=== PATIENT | male | born 1995 | race American Indian/Alaskan Native ===

== ENCOUNTER 2021-09-06 02:33 | Emergency (ER) | payer SELFPAY ==
--- NOTE | 2021-09-06 03:16 | Emergency Department Report ---
HPI - General Chief Complaint: Psych Time Seen by Provider: 09/06/21 02:46 - HPI HPI: 26-year-old -[place] male presents to the emergency department for a mental health evaluation with both suicidal and homicidal ideations. He has a history of bipolar disorder and schizophrenia and says that he has not been on medications for "a while" because "I stopped taking them." He had the plan to jump off a bridge in order to kill himself. When asked if there is a particular reason why he is feeling depressed and suicidal he says "yes" but does not want to discuss it any further. He also admits to some homicidal ideation towards the mother of his child. He admits to some nonspecific auditory hallucinations but denies visual hallucinations. He is an occasional tobacco smoker, but denies any illicit drug use. He denies any past medical history. ED Past Medical Hx - Past Medical History Hx Psychiatric Treatment: Yes (BIPOLOR, SCHIZOPHRENIA) - Surgical History Past Surgical History?: No ED Review of Systems ROS: Stated complaint: SUICIDAL, HOMICIDAL Other details as noted in HPI Comment: All other systems reviewed and negative Constitutional: denies: chills, fever Respiratory: denies: cough, shortness of breath Cardiovascular: denies: chest pain, palpitations Gastrointestinal: denies: abdominal pain, vomiting Neurological: denies: headache, weakness Psychiatric: auditory hallucinations, homicidal thoughts, suicidal thoughts. denies: visual hallucinations Physical Exam - Physical Exam Vital Signs: Vital Signs 09/06/21 02:45 Temperature 98.3 F Pulse Rate 60 Respiratory 16 Rate Blood Pressure 127/84 [Left] O2 Sat by Pulse 99 Oximetry Physical Exam: GENERAL: The patient is well-developed well-nourished. HENT: Normocephalic. Atraumatic. Patient has moist mucous membranes. EYES: Extraocular motions are intact. NECK: Supple. Trachea is midline. CHEST/LUNGS: Clear to auscultation. There is no respiratory distress noted. HEART/CARDIOVASCULAR: Regular. There is no tachycardia. There is no murmur. ABDOMEN: Abdomen is soft, nontender. Patient has normal bowel sounds. SKIN: Skin is warm and dry. NEURO: The patient is awake, alert, and oriented. Normal speech. MUSCULOSKELETAL: There is no tenderness or deformity. There is no limitation range of motion. ED Course Vital Signs 09/06/21 02:45 Temperature 98.3 F Pulse Rate 60 Respiratory 16 Rate Blood Pressure 127/84 [Left] O2 Sat by Pulse 99 Oximetry ED Medical Decision Making - Lab Data Result diagrams: 09/06/21 02:58 09/06/21 02:58 Lab Results 09/06/21 09/06/21 09/06/21 Range/Units 02:58 02:58 02:58 WBC 8.4 (4.5-11.0) K/mm3 RBC 5.25 H (3.65-5.03) M/mm3 Hgb 15.1 (11.8-15.2) gm/dl Hct 46.1 H (35.5-45.6) % MCV 88 (84-94) fl MCH 29 (28-32) pg MCHC 33 (32-34) % RDW 13.8 (13.2-15.2) % Plt Count 171 (140-440) K/mm3 Lymph % (Auto) 33.8 (13.4-35.0) % [place] % (Auto) 3.7 (0.0-7.3) % Eos % (Auto) 2.3 (0.0-4.3) % Baso % (Auto) 0.7 (0.0-1.8) % Lymph # (Auto) 2.8 (1.2-5.4) K/mm3 [place] # (Auto) 0.3 (0.0-0.8) K/mm3 Eos # (Auto) 0.2 (0.0-0.4) K/mm3 Baso # (Auto) 0.1 (0.0-0.1) K/mm3 Seg Neutrophils % 59.5 (40.0-70.0) % Seg Neutrophils # 5.0 (1.8-7.7) K/mm3 Sodium 134 L (137-145) mmol/L Potassium 4.1 (3.6-5.0) mmol/L Chloride 98.8 (98-107) mmol/L Carbon Dioxide 25 (22-30) mmol/L Anion Gap 14 mmol/L BUN 6 L (9-20) mg/dL Creatinine 0.6 L (0.8-1.3) mg/dL Estimated GFR > 60 ml/min BUN/Creatinine Ratio 10 % Glucose 67 L (75-100) mg/dL Calcium 9.4 (8.4-10.2) mg/dL Urine Color (Yellow) Urine Turbidity (Clear) Urine pH (5.0-7.0) Ur Specific [place] (1.003-1.030) Urine Protein (Negative) mg/dL Urine Glucose (UA) (Negative) mg/dL Urine Ketones (Negative) mg/dL Urine Blood (Negative) Urine Nitrite (Negative) Urine Bilirubin (Negative) Urine Urobilinogen (<2.0) mg/dL Ur Leukocyte Esterase (Negative) Urine WBC (Auto) (0.0-6.0) /HPF Urine RBC (Auto) (0.0-6.0) /HPF Urine Opiates Screen Urine Methadone Screen Ur Barbiturates Screen Ur Phencyclidine Scrn Ur Amphetamines Screen U Benzodiazepines Scrn Urine Cocaine Screen U Marijuana (THC) Screen Drugs of Abuse Note Plasma/Serum Alcohol 0.03 (0-0.07) % 09/06/21 09/06/21 Range/Units Unknown Unknown WBC (4.5-11.0) K/mm3 RBC (3.65-5.03) M/mm3 Hgb (11.8-15.2) gm/dl Hct (35.5-45.6) % MCV (84-94) fl MCH (28-32) pg MCHC (32-34) % RDW (13.2-15.2) % Plt Count (140-440) K/mm3 Lymph % (Auto) (13.4-35.0) % [place] % (Auto) (0.0-7.3) % Eos % (Auto) (0.0-4.3) % Baso % (Auto) (0.0-1.8) % Lymph # (Auto) (1.2-5.4) K/mm3 [place] # (Auto) (0.0-0.8) K/mm3 Eos # (Auto) (0.0-0.4) K/mm3 Baso # (Auto) (0.0-0.1) K/mm3 Seg Neutrophils % (40.0-70.0) % Seg Neutrophils # (1.8-7.7) K/mm3 Sodium (137-145) mmol/L Potassium (3.6-5.0) mmol/L Chloride (98-107) mmol/L Carbon Dioxide (22-30) mmol/L Anion Gap mmol/L BUN (9-20) mg/dL Creatinine (0.8-1.3) mg/dL Estimated GFR ml/min BUN/Creatinine Ratio % Glucose (75-100) mg/dL Calcium (8.4-10.2) mg/dL Urine Color Straw (Yellow) Urine Turbidity Clear (Clear) Urine pH 6.0 (5.0-7.0) Ur Specific [place] 1.006 (1.003-1.030) Urine Protein <15 mg/dl (Negative) mg/dL Urine Glucose (UA) Neg (Negative) mg/dL Urine Ketones Neg (Negative) mg/dL Urine Blood Neg (Negative) Urine Nitrite Neg (Negative) Urine Bilirubin Neg (Negative) Urine Urobilinogen < 2.0 (<2.0) mg/dL Ur Leukocyte Esterase Neg (Negative) Urine WBC (Auto) < 1.0 (0.0-6.0) /HPF Urine RBC (Auto) < 1.0 (0.0-6.0) /HPF Urine Opiates Screen Negative Urine Methadone Screen Negative Ur Barbiturates Screen Negative Ur Phencyclidine Scrn Negative Ur Amphetamines Screen Negative U Benzodiazepines Scrn Negative Urine Cocaine Screen Negative U Marijuana (THC) Screen Positive Drugs of Abuse Note Disclamer Plasma/Serum Alcohol (0-0.07) % - Medical Decision Making This patient presents to the emergency department for mental health evaluation. He expressed suicidal and homicidal ideations and for that reason he has been made a 1013 and placed on an ED hold. Labs have been mostly unremarkable including CBC, metabolic panel, urinalysis. Blood alcohol level is still under the legal limit at 0.04, and UDS positive only for marijuana. He did have some borderline hypoglycemia so I made sure that the patient ate a snack and drink some juice. Vital signs have been reassuring. He will be seen by the psychiatric team in the morning. The patient is medically cleared for psyc hiatric placement. Critical Care Time: No Critical care attestation.: If time is entered above; I have spent that time in minutes in the direct care of this critically ill patient, excluding procedure time. ED Disposition Clinical Impression: Suicidal ideations, Homicidal ideations Disposition: [address] [place] [address] Is pt being admited?: No Condition: Stable Time of Disposition: 05:28
[2021-09-06 03:51] LABS: Blood Urea Nitrogen 6 mg/dL (9-20); Calcium 9.4 mg/dL (8.4-10.2); Hemolysis Index 79
[2021-09-06 03:55] LABS: BUN/Creatinine Ratio 10
[2021-09-06 03:59] LABS: Amphetamine Screen,Urine Negative; Benzodiazepines Screen,Urine Negative; Cocaine Screen,Urine Negative; Methadone Screen,Urine Negative; Opiate Screen,Urine Negative
[2021-09-06 03:59] LABS: Basophils # (Auto) 0.1 K/mm3 (0.0-0.1); Basophils % (Auto) 0.7 % (0.0-1.8); Eosinophils # (Auto) 0.2 K/mm3 (0.0-0.4); Eosinophils % (Auto) 2.3 % (0.0-4.3); Hematocrit 46.1 % (35.5-45.6); Hemoglobin 15.1 gm/dl (11.8-15.2); Lymphocytes # (Auto) 2.8 K/mm3 (1.2-5.4); Lymphocytes % (Auto) 33.8 % (13.4-35.0); Mean Corpuscular HGB Conc 33 % (32-34); Mean Corpuscular Volume 88 fl (84-94); Monocytes # (Auto) 0.3 K/mm3 (0.0-0.8); Monocytes % (Auto) 3.7 % (0.0-7.3); Red Blood Count 5.25 M/mm3 (3.65-5.03); Red Cell Distribution Width 13.8 % (13.2-15.2)
[2021-09-06 04:00] LABS: Platelet Count 171 K/mm3 (140-440)
[2021-09-06 04:00] LABS: Bilirubin,Urine NEG (Negative); Blood,Urine NEG (Negative); Color,Urine Straw (Yellow); Protein,Urine <15 mg/dL mg/dL (Negative); RBC,Urine < 1.0 /HPF (0.0-6.0); Urobilinogen,Urine < 2.0 mg/dL (<2.0); WBC,Urine < 1.0 /HPF (0.0-6.0)
[2021-09-06 04:36] LABS: Cannabinoid Screen,Urine Positive
--- NOTE | 2021-09-06 11:00 | Consultation ---
History of Present Illness - Reason for Consult Consult date: 09/06/21 Reason for consult: suicidal ideation - History of Present Psychiatric Illness ED Note: 26-year-old -[place] male presents to the emergency department for a mental health evaluation with both suicidal and homicidal ideations. He has a history of bipolar disorder and schizophrenia and says that he has not been on medications for "a while" because "I stopped taking them." He had the plan to jump off a bridge in order to kill himself. When asked if there is a particular reason why he is feeling depressed and suicidal he says "yes" but does not want to discuss it any further. He also admits to some homicidal ideation towards the mother of his child. He admits to some nonspecific auditory hallucinations but denies visual hallucinations. He is an occasional tobacco smoker, but denies any illicit drug use. He denies any past medical history. The patient was seen today. He reports that he was feeling suicidal " I wanted to kill myself and my baby mama." He reports that he has been going through some stressful time with is baby mama " I can't see my daughter." The patient is depressed and endorses suicidal ideation with a plan to walk into traffic. He also admits to having auditory hallucinations " voices telling me to starve and don't eat anything. " PAST PSYCHIATRIC HISTORY: Diagnoses:Schizophrenia, Bipolar Suicide attempts or Self-harm behavior: Yes Prior psychiatric hospitalizations: Yes Substance Abuse history: Marijuana Previous psychiatric medications tried:Unable to recall Outpatient treatment:unknown PAST MEDICAL HISTORY: Family Psychiatric History: None reported or documented SOCIAL HISTORY Marital Status: Single Living Arrangements: Lives with mother Employment Status:unemployed Access to guns/weapons: Denies Education: 10th grade History of Abuse: Denies Legal History:Unknown REVIEW OF SYSTEMS Constitutional: Negative for weight loss ENT: Negative for stridor Respiratory: Negative for cough or hemoptysis All other systems reviewed and are negative MENTAL STATUS EXAMINATION General Appearance and Behavior: Age appropriate, good hygiene, wearing appropriate clothes, cooperative polite with questioning. Cooperation: cooperative Psychomotor Behavior: Normal Mood:Depressed Affect and affective range:congruent Thought Process:Goal directed Thought Content:suicidal Speech:normal Intellectual Functioning: Average Suicidal Ideation:Yes Homicidal Ideation: Denies Hallucination: Yes Impulse Control:Normal Insight and Judgment:limited insight and good judgment Memory: Intact Attention:Normal Orientation: Alert and oriented Diagnoses: (1) schizophrenia Treatment Plan: 1013 Case management. Continue - Home Medications. Start Abilify 10mg po daily Patient should be compliant with medications and not to use drugs and not to drink alcohol. PSYCHOTHERAPY: Supportive psychotherapy provided MEDICAL: Per primary team DELIRIUM PRECAUTIONS: Please re-orient patient frequently, keep lights on during the day, and minimize benzodiazepines and opiates as these medications could worsen patient's confusion. TAX APPRAISER: Per medical team DISPOSITION: Recommend acute inpatient psychiatric hospitalization at this time. FOLLOW-UP: Will follow. Thank you for the consult. Please contact with any questions and/or concerns. Medications and Allergies Allergies Allergy/AdvReac Type Severity Reaction Status Date / Time No Known Allergies Allergy Verified 09/06/21 02:40 Home Medications Medication Instructions Recorded Confirmed Last Taken Type No Known Home Medications [No 09/06/21 09/06/21 Unknown History Reported Home Medications] Mental Status Exam - Vital signs Last Vital Signs Temp 98.3 F 09/06/21 02:45 Pulse 60 09/06/21 02:45 Resp 16 09/06/21 02:45 BP 127/84 09/06/21 02:45 Pulse Ox 99 09/06/21 08:42 Results Result Diagrams: 09/06/21 02:58 09/06/21 02:58 Abnormal lab results 09/06/21 09/06/21 Range/Units 02:58 02:58 RBC 5.25 H (3.65-5.03) M/mm3 Hct 46.1 H (35.5-45.6) % Sodium 134 L (137-145) mmol/L BUN 6 L (9-20) mg/dL Creatinine 0.6 L (0.8-1.3) mg/dL Glucose 67 L (75-100) mg/dL All other labs normal.
--- NOTE | 2021-09-06 11:39 | Emergency Department Report ---
Blank Doc - Documentation Documentation: This morning, patient has been seen by psychiatric services. The patient has no specific complaints. Plan is for psychiatric admission. We will continue to await psychiatric placement. Patient will be maintained on a hold here.
[2021-09-06] MEDS: ARIPiprazole 10 MG TAB PO SCH (11:49)
[2021-09-06] MEDS: traZODone 50 MG TAB PO SCH (21:52)
[2021-09-07] MEDS: ARIPiprazole 10 MG TAB PO SCH (10:29)
--- NOTE | 2021-09-07 11:48 | Event Note ---
Date: 09/07/21 S: No events reported overnight O: Vital Signs 09/07/21 09/07/21 05:43 09:39 Temperature 97.9 F Pulse Rate 63 Respiratory 20 Rate Blood Pressure 143/97 [Right] O2 Sat by Pulse 100 97 Oximetry A: Schizophrenia P: 1013/awaiting inpatient psych
--- NOTE | 2021-09-07 12:21 | Progress Note ---
Subjective - Reason for Consult Consult date: 09/07/21 Reason for consult: SI - Chief Complaint Chief complaint: The patient was seen this morning. he continues to present with depressive mood. The continues to have hallucinations. the patient states " If I go back to where I come from it will not help improve. " REVIEW OF SYSTEMS Constitutional: Negative for weight loss ENT: Negative for stridor Respiratory: Negative for cough or hemoptysis All other systems reviewed and are negative MENTAL STATUS EXAMINATION General Appearance and Behavior: Age appropriate, good hygiene, wearing appropriate clothes, cooperative polite with questioning. Cooperation: cooperative Psychomotor Behavior: Normal Mood:Depressed Affect and affective range:congruent Thought Process:Goal directed Thought Content:Denies Speech:normal Intellectual Functioning: Average Suicidal Ideation:Denies Homicidal Ideation: Denies Hallucination: Yes Impulse Control:Normal Insight and Judgment:limited insight and good judgment Memory: Intact Attention:Normal Orientation: Alert and oriented Diagnoses: (1) schizophrenia Treatment Plan: 1013 Case management. Continue - Home Medications. Continue Abilify 10mg po daily Patient should be compliant with medications and not to use drugs and not to drink alcohol. PSYCHOTHERAPY: Supportive psychotherapy provided MEDICAL: Per primary team DELIRIUM PRECAUTIONS: Please re-orient patient frequently, keep lights on during the day, and minimize benzodiazepines and opiates as these medications could worsen patient's confusion. SENIOR WEALTH ADVISOR: Per medical team DISPOSITION: Recommend acute inpatient psychiatric hospitalization at this time. FOLLOW-UP: Will follow. Thank you for the consult. Please contact with any questions and/or concerns. Mental Status Exam - Vital signs Last Vital Signs Temp 97.9 F 09/07/21 05:43 Pulse 63 09/07/21 05:43 Resp 20 09/07/21 05:43 BP 143/97 09/07/21 05:43 Pulse Ox 97 09/07/21 09:39
[2021-09-07] MEDS: traZODone 50 MG TAB PO SCH (23:29)
--- NOTE | 2021-09-08 10:34 | Progress Note ---
Subjective - Reason for Consult Consult date: 09/08/21 Reason for consult: suicidal ideation - Chief Complaint Chief complaint: The patient was seen this morning. he reports doing well. He reports sleep and appetite as good. The patient denies any current suicidal/homicidal ideation and denies hallucinations. REVIEW OF SYSTEMS Constitutional: Negative for weight loss ENT: Negative for stridor Respiratory: Negative for cough or hemoptysis All other systems reviewed and are negative MENTAL STATUS EXAMINATION General Appearance and Behavior: Age appropriate, good hygiene, wearing appropriate clothes, cooperative polite with questioning. Cooperation: cooperative Psychomotor Behavior: Normal Mood:"ok" Affect and affective range:congruent Thought Process:Goal directed Thought Content:Reality oriented Speech:Normal Intellectual Functioning: Average Suicidal Ideation:Denies Homicidal Ideation: Denies Hallucination:Denies Impulse Control:Normal Insight and Judgment:limited insight and good judgment Memory: Intact Attention:Normal Orientation: Alert and oriented Diagnoses: (1) schizophrenia Treatment Plan: [place] 1013 Case management. Continue - Home Medications. Continue Abilify 10mg po daily Patient should be compliant with medications and not to use drugs and not to drink alcohol. PSYCHOTHERAPY: Supportive psychotherapy provided MEDICAL: Per primary team DELIRIUM PRECAUTIONS: Please re-orient patient frequently, keep lights on during the day, and minimize benzodiazepines and opiates as these medications could worsen patient's confusion. ATTENDANT CAMPGROUND: Per medical team Disposition: Do not recommend acute inpatient psychiatric hospitalization at this time. At the time of discharge, the patient had no suicidal ideation, no homicidal ideation, no aggressive thoughts, no endangering behavior and no debilitating adverse effect. The patient agreed on the treatment plan, understood the risk, benefit, alternative treatment, potential consequences of no treatment and gave informed consent. The patient understands that if suicidal ideas or any endangering thoughts arise, he should immediately seek for emergent assistance including but limited to crisis hotline and emergency room. The patient will follow up with outpatient psychiatrist and PCP within 7 -14 days of discharge. The shared services representative will provide patient with psychiatric outpatient resources and safety plan. FOLLOW-UP: Will sign off. Please contact with any questions and/or concerns. Mental Status Exam - Vital signs Last Vital Signs Temp 98.1 F 09/08/21 02:49 Pulse 55 L 09/08/21 02:49 Resp 16 09/08/21 02:49 BP 124/64 09/08/21 02:49 Pulse Ox 95 09/08/21 02:49
--- NOTE | 2021-09-08 11:12 | Event Note ---
Date: 09/08/21 pt was assessed and he doesn;t meet inpatient criteria, fees safe low risk , vss nod sitress
[2021-09-08 12:25] VITALS: BP 0/0
== END 2021-09-08 12:31 | disposition home or self-care (01) ==
LOC: ED 02:33
DX: F20.9 Schizophrenia, unspecified (principal); R45.851 Suicidal ideations; R45.850 Homicidal ideations; F31.9 Bipolar disorder, unspecified
CPT/HCPCS: 36415; 80048; 80307; 81001; 82962; 84295; 85025; 99284; U0003; 80320; 99285; G0480